=== PATIENT | female | born 1985 | race Caucasian/White ===

== ENCOUNTER 2025-05-26 16:07 | Emergency (ER) | payer OTHER ==
[~2025-05-26] VITALS: Ht 170.1 cm; Wt 72.6 kg
[2025-05-26] MEDS ORDERED: Metoclopramide Hydrochloride 10 MG/2 ML VIAL IV ONE (16:15)
[2025-05-26] MEDS ORDERED: SODIUM CHLORIDE 0.9% 1,000 ML IV ONE (16:15)
[2025-05-26] MEDS ORDERED: diphenhydrAMINE hydrochloride 50 MG/ML VIAL IV ONE (16:15)
[2025-05-26 16:52] LABS: BUN 9 mg/dl (9-23)
[2025-05-26] MEDS ORDERED: POTASSIUM CHLORIDE 20 MEQ TAB PO ONE (17:05)
[2025-05-26 17:06] LABS: BASO # 0.0 10*3/uL (0.0-0.1); BASO % 0.6 % (0.0-1.0); EOS # 0.1 10*3/uL (0.0-0.4); EOS % 0.8 % (1.0-4.0); MEAN CELL VOLUME 93.9 fl (81.0-99.0); MEAN CORPUSCULAR HGB 31.6 pg (27.0-31.0); MEAN PLATELET VOLUME 10.0 fl (9.6-12.3); MONO # 0.5 10*3/uL (0.1-1.0); MONO % 6.5 % (3.0-9.0); NEUT # 5.7 10*3/uL (2.3-7.9); NEUT % 80.4 % (47.0-73.0); NUCLEATED RED BLOOD CELL 0.0 % (0.0-0.0); NUCLEATED RED BLOOD CELL 0.0 10*3/uL (0.0-0.0); PLATELET COUNT AUTOMATED 233 10*3/uL (130-400); RED CELL DISTRI WIDTH 13.1 % (0-14.5)
[2025-05-26] MEDS ORDERED: IBU800 M2 PO (17:12)
[2025-05-26] MEDS ORDERED: REGLAN10 M1 PO (17:12)
[2025-05-27] MEDS ORDERED: IBU800 M2 PO (13:04)
[2025-05-27] MEDS ORDERED: REGLAN10 M1 PO (13:04)
== END 2025-05-26 17:39 | disposition home or self-care (01) ==
LOC: ED 16:07
PROVIDERS: Emergency Medicine
DX: G43.909 Migraine, unspecified, not intractable, without status migrainosus (principal); Z88.1 Allergy status to other antibiotic agents; Z88.2 Allergy status to sulfonamides